=== PATIENT | female | born 1990 | race African-American/Black ===

== ENCOUNTER 2020-07-25 13:32 | Emergency (ER) | payer OTHER ==
[~2020-07-25] VITALS: Ht 157.5 cm; Wt 68.0 kg
[2020-07-25] MEDS ORDERED: MORPHINE SULFATE 4 MG/ML CPJ (NOT FOR IM USE) IV ONE (14:15)
[2020-07-25] MEDS ORDERED: ONDANSETRON HCL 4MG/2ML INJ IV ONE (14:15)
[2020-07-25] MEDS ORDERED: METOCLOPRAMIDE HCL 10MG/2ML VIAL IV ONE (14:45)
[2020-07-25] MEDS ORDERED: LORAZEPAM 2MG/ML CPJ IV ONE (14:45)
[2020-07-25] MEDS ORDERED: SODIUM CHLORIDE 0.9% 1,000 ML IV ONE ×2 (14:45→16:15)
[2020-07-25 15:01] LABS: BASOPHILS % 0.7 % (0.0-2.0); EOSINOPHILS % 1.1 % (0.0-5.0); HEMATOCRIT. 43.4 % (36.0-48.0); HEMOGLOBIN. 14.8 g/dL (12.0-16.0); LYMPHOCYTES % 50.1 % (20.0-50.0); MEAN CORPUSCULAR HEMOGLOBIN 31.8 pg (28.0-32.0); MEAN CORPUSCULAR VOLUME 93.4 fL (81.0-99.0); MEAN PLATELET VOLUME 9.7 fl (7.4-10.4); MONOCYTES % 10.9 % (2.0-8.0); NEUTROPHILS % 37.2 % (40.0-76.0); PLATELET 254 x1000/uL (130-400); RED BLOOD CELL COUNT 4.65 mill/uL (4.2-5.4); RED CELL DISTRIBUTION WIDTH 12.7 % (11.6-14.6)
[2020-07-25 15:27] LABS: CHLORIDE 105 mEq/L (98-107)
[2020-07-25 15:30] LABS: INR 1.1
[2020-07-25] MEDS ORDERED: HALOPERIDOL LACTATE 5MG/ML VIAL IM STA (16:00)
[2020-07-25 17:18] VITALS: BP 132/90
== END 2020-07-25 17:31 | disposition home or self-care (01) ==
LOC: ER 14:21
DX: R11.2 Nausea with vomiting, unspecified (principal); R10.84 Generalized abdominal pain; F12.10 Cannabis abuse, uncomplicated
CPT/HCPCS: 36415; 76700; 80053; 83605; 83690; 85025; 85610; 96361; 96374; 96375; 99284; J2060; J2270; J2405; J2765; J7030

== ENCOUNTER 2020-08-18 00:44 | Emergency (ER) | payer OTHER ==
[~2020-08-18] VITALS: Ht 157.5 cm; Wt 69.0 kg
[2020-08-18] MEDS ORDERED: HALOPERIDOL LACTATE 5MG/ML VIAL IM ONE (01:30)
[2020-08-18] MEDS ORDERED: KETOROLAC 30MG/ML VIAL IV ONE (02:15)
[2020-08-18 03:30] VITALS: BP 134/88
== END 2020-08-18 03:32 | disposition home or self-care (01) ==
LOC: ER 00:44
DX: R11.10 Vomiting, unspecified (principal); F12.90 Cannabis use, unspecified, uncomplicated; Z88.6 Allergy status to analgesic agent; Z98.890 Other specified postprocedural states
CPT/HCPCS: 96372; 96374; 99283; J1630; J1885